=== PATIENT | male | born 1985 | race Hispanic/Latino ===

== ENCOUNTER 2018-03-26 17:52 | Emergency (ER) | payer OTHER ==
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
[2018-03-26 18:30] VITALS: O2SAT 96
[2018-03-26 19:58] VITALS: BP 123/73; PULSE 88; RESP 12
[2018-03-26 20:00] VITALS: TEMP 98.1
--- NOTE | 2018-03-27 12:43 | CARD ---
APPROVED REPORT EKG Measurement Heart [id number] <Conclusion> Normal sinus rhythm Normal ECG
== END 2018-03-26 20:35 | disposition home or self-care (01) ==
LOC: ED 17:52
DX: T40.1X1A Poisoning by heroin, accidental (unintentional), initial encounter (principal); F17.200 Nicotine dependence, unspecified, uncomplicated